=== PATIENT | male | born 1990 | race Caucasian/White ===

== ENCOUNTER 2017-12-13 08:09 | Emergency (ER) | payer OTHER ==
[~2017-12-13] VITALS: Ht 188 cm; Wt 94.0 kg
[2017-12-13 08:11] VITALS: BP 146/84
[2017-12-13] MEDS ORDERED: IBUPROFEN 600 MG TABLET PO ONE (08:30)
[2017-12-13] MEDS ORDERED: IBUPROFEN 200 MG TABLET ONE (08:40)
== END 2017-12-13 10:13 | disposition home or self-care (01) ==
LOC: ED 10:07
DX: S92.334A Nondisplaced fracture of third metatarsal bone, right foot, initial encounter for closed fracture (principal); S92.344A Nondisplaced fracture of fourth metatarsal bone, right foot, initial encounter for closed fracture; W22.8XXA Striking against or struck by other objects, initial encounter; Y93.89 Activity, other specified; Y92.89 Other specified places as the place of occurrence of the external cause; Y99.8 Other external cause status
CPT/HCPCS: 29515; 99284